=== PATIENT | female | born 1985 | race Caucasian/White ===

== ENCOUNTER 2021-07-06 20:20 | Emergency (ER) | payer OTHER ==
[~2021-07-06] VITALS: Ht 162.6 cm; Wt 58.5 kg
[2021-07-06 20:33] VITALS: BP 117/69
--- NOTE | 2021-07-06 20:33 | NUR ---
TO BED AMBULATORY
--- NOTE | 2021-07-06 20:45 | NUR ---
CONSTIPATION, NO BM 3 WEEKS, N/V,
--- NOTE | 2021-07-06 20:55 | NUR ---
DR. DELGADO AT BEDSIDE FOR EXAM
[2021-07-06] MEDS ORDERED: MAGN296S48 PO (21:13)
[2021-07-06] MEDS ORDERED: GLYPS RC (21:13)
[2021-07-06] MEDS ORDERED: ONDA-24 PO (21:13)
[2021-07-06 21:30] VITALS: BP 117/69
--- NOTE | 2021-07-06 21:30 | NUR ---
Patient discharged with v/s stable. Written and verbal after care instructions given and explained. Patient alert, oriented and verbalized understanding of instructions. Ambulatory with steady gait. All questions addressed prior to discharge. ID band removed. Patient advised to follow up with PMD. Rx of GLYCERIN, CITROMA, ZOFRAN given. Patient educated on indication of medication including possible reaction and side effects. Opportunity to ask questions provided and answered.
== END 2021-07-06 21:30 | disposition home or self-care (01) ==
LOC: MED 20:20
DX: K59.00 Constipation, unspecified (principal); Z79.899 Other long term (current) drug therapy
CPT/HCPCS: 99283

== ENCOUNTER 2023-05-13 00:20 | Emergency (ER) | payer OTHER ==
[~2023-05-13] VITALS: Ht 157.5 cm; Wt 59.0 kg
[~2023-05-13 00:20] MED LIST: GLYPS RC; MAGN296S48 PO; ONDA-188 PO
[2023-05-13 00:53] VITALS: BP 122/74; PULSE 88; RESP 20; TEMP 98; O2SAT 98
[2023-05-13 01:35] LABS: APPEARANCE,URINE CLOUDY (CLEAR); BILIRUBIN,URINE NEGATIVE (NEGATIVE); BLOOD, URINE 3+ (NEGATIVE); COLOR,URINE RED (YELLOW); LEUKOCYTE ESTERASE ,URINE 2+ (NEGATIVE); NITRITE, URINE NEGATIVE (NEGATIVE); PH,URINE 7.5 (5.0-9.0); PROTEIN,URINE 3+ (NEGATIVE); UGLUCOSE NEGATIVE (NEGATIVE); UROBILINOGEN,URINE 0.2 EU/dL (0.2 - 1)
[2023-05-13 01:39] LABS: RBC,URINE TOO NUMEROUS TO COUN /HPF (0-5)
[2023-05-13 01:40] LABS: BACTERIA,URINE 10-30 (MOD) /HPF (None Seen); MUCUS,URINE 2+ /LPF (None Seen); SQUAMOUS EPITHELIAL CELL,UR 4-10 (MOD) /LPF (0-3 (FEW))
[2023-05-13] MEDS ORDERED: PHENAZOPYRIDINE 100 MG TAB PO ONE (02:15)
[2023-05-13] MEDS ORDERED: PIPERACILLIN/TAZOBACTAM 3.375 GM in DEXTROSE 5% 50 ML IV ONE (02:15)
[2023-05-13] MEDS ORDERED: PIPERACILLIN/TAZOBACTAM 3.375 GM VIAL IV ONE (02:29)
[2023-05-13 02:30] LABS: BASOPHILS # (AUTO) 0.1 K/uL (0.00-0.22); BASOPHILS % (AUTO) 0.5 % (0.0-2.0); EOSINOPHILS # (AUTO) 0.1 K/uL (0-0.4); EOSINOPHILS % (AUTO) 0.6 % (0.0-4.0); HEMATOCRIT 35.1 % (36-48); HEMOGLOBIN 11.6 g/dL (12.0-16.0); LYMPHOCYTES # (AUTO) 1.8 K/uL (2.5-16.5); LYMPHOCYTES % (AUTO) 13.4 % (20.5-51.1); MEAN CORPUSCULAR HEMOGLOBIN 30 pg (27-31); MEAN CORPUSCULAR HGB CONC 33 g/dL (33-37); MEAN CORPUSCULAR VOLUME 90.1 fL (80-94); MONOCYTES # (AUTO) 0.6 K/uL (0.8-1.0); MONOCYTES % (AUTO) 4.4 % (1.7-9.3); NEUTROPHILS # (AUTO) 11.2 K/uL (1.8-7.7); NEUTROPHILS % (AUTO) 81.1 % (42.2-75.2); PLATELET COUNT (AUTO) 224 K/uL (140-450); WHITE BLOOD COUNT (AUTO) 13.8 K/uL (4.8-10.8)
[2023-05-13 02:45] LABS: INR 0.97 (0.8-1.2); PARTIAL THROMBOPLASTIN TIME 22.5 secs (22-35.6); PROTHROMBIN TIME 10.2 secs (10.8-13.4)
[2023-05-13 02:48] LABS: ALBUMIN 3.6 g/dL (3.4-5.0); ANION GAP 11.2 (8-16); CALCIUM 8.6 mg/dL (8.5-10.1); CARBON DIOXIDE 26.8 mmol/L (21-32); CREATININE 1.2 mg/dL (0.6-1.3); TOTAL BILIRUBIN 0.2 mg/dL (0.0-1.0)
[2023-05-13 03:38] VITALS: O2SAT 98
[2023-05-13] MEDS ORDERED: KETOROLAC 15 MG/ML VIAL IVP ONE (03:50)
[2023-05-13] MEDS ORDERED: ONDANSETRON 4 MG/2 ML VIAL IVP ONE (03:50)
[2023-05-13] MEDS ORDERED: CEPH-588 PO (03:52)
[2023-05-13] MEDS ORDERED: ACET-10509 PO (03:52)
[2023-05-13] MEDS ORDERED: PYR100 PO (03:52)
== END 2023-05-13 04:33 | disposition home or self-care (01) ==
LOC: MED 00:20
DX: N39.0 Urinary tract infection, site not specified (principal); D64.9 Anemia, unspecified; Z79.899 Other long term (current) drug therapy
CPT/HCPCS: 36415; 80053; 81001; 81025; 83605; 85025; 85610; 85730; 86886; 86900; 86901; 87040; 87086; 96365; 96367; 96375; 99284; J1885; J2405; J2543